=== PATIENT | female | born 1950 | race Caucasian/White ===

== ENCOUNTER 2018-11-28 03:13 | Inpatient (IN) ==
[2018-11-28] MEDS ORDERED: MORPHINE 4 MG/1 ML VIAL IV STA (03:29)
[2018-11-28] MEDS ORDERED: ONDANSETRON 4 MG/2 ML VIAL IV ONE (03:29)
[2018-11-28] MEDS ORDERED: PROMETHAZINE 25 MG/1 ML VIAL IM PRN (04:20)
[2018-11-28] MEDS: ONDANSETRON 4 MG/2 ML VIAL IV PRN ×3 (05:26→20:40)
[2018-11-28] MEDS: MORPHINE 4 MG/1 ML VIAL IV PRN ×4 (06:08→20:39)
[2018-11-28] MEDS: cefTRIAXone 1,000 MG in SYRINGE 1 EACH IV SCH ×2 (06:11→19:36)
[2018-11-28] MEDS: metroNIDAZOLE INJ 500 MG in PREMIX 1 EACH IV SCH ×2 (06:30→17:59)
[2018-11-28] MEDS: SODIUM CHLORIDE 0.9% 1,000 ML IV SCH ×2 (06:30→21:56)
[2018-11-28] MEDS: PANTOPRAZOLE 40 MG VIAL IV SCH ×2 (09:11→20:32)
[2018-11-28] MEDS ORDERED: HYDROCORTISONE 25 MG SUPP RECTAL PRN (16:16)
[2018-11-29] MEDS: SODIUM CHLORIDE 0.9% 1,000 ML IV SCH ×4 (02:27→20:46)
[2018-11-29] MEDS: MORPHINE 4 MG/1 ML VIAL IV PRN ×2 (04:20→16:35)
[2018-11-29] MEDS: ONDANSETRON 4 MG/2 ML VIAL IV PRN ×2 (04:21→16:36)
[2018-11-29 05:07] LABS: Basophils % 0.3 % (0.0-0.8); Eosinophils # 0.2 10*3/uL (0.0-0.87); Eosinophils % 2.5 % (0.00-10.9); Hematocrit 40.5 VOL% (35.7-47.0); Immature Granulocytes % 0.4 %; Immature Granulocytes Absolute 0.03 #; Lymphocytes # 2.1 10*3/uL (1.4-4.0); Lymphocytes % 28.9 % (21.3-54.2); Mean Corpuscular HGB Conc 32.1 GM/DL (32-36); Mean Corpuscular Volume 92.9 FL (87-102); Mean Platelet Volume 10.9 FL (9.6-12.0); Monocytes % 10.1 % (1.7-12.7); Neutrophils % 57.8 % (38.7-73.9); Platelet Count 121 T/CUMM (130-400); Red Blood Count 4.36 MC/CUMM (3.8-5.5); Red Cell Distribution Width 12.7 % (9.3-17.3); White Blood Count 7.1 T/CUMM (4-12)
[2018-11-29 05:27] LABS: Calcium 7.9 MG/DL (8.5-10.1); Osmolality,Calculated 286.8 MOS/KG (273-304)
[2018-11-29] MEDS: cefTRIAXone 1,000 MG in SYRINGE 1 EACH IV SCH ×2 (06:15→18:00)
[2018-11-29] MEDS: metroNIDAZOLE INJ 500 MG in PREMIX 1 EACH IV SCH ×3 (06:18→18:03)
[2018-11-29] MEDS ORDERED: POTASSIUM CHLORIDE 20 MEQ TABLET PO ONE (09:27)
[2018-11-29] MEDS: PANTOPRAZOLE 40 MG VIAL IV SCH ×2 (11:09→20:46)
[2018-11-29] MEDS: ENOXAPARIN 40 MG/0.4 ML SYRINGE SUBCUT SCH (16:46)
[2018-11-29] MEDS: SERTRALINE 100 MG TABLET PO SCH (18:03)
[2018-11-29] MEDS: MAGNESIUM OXIDE 400 MG TABLET PO SCH (20:47)
[2018-11-29] MEDS: POLYETHYLENE GLYCOL POWDER 17 GM PACK PO SCH (20:47)
[2018-11-29] MEDS: DOCUSATE SODIUM 100 MG CAPSULE PO SCH (20:47)
[2018-11-29] MEDS: LORazepam 2 MG/1 ML VIAL IV PRN (22:12)
[2018-11-30] MEDS: MORPHINE 4 MG/1 ML VIAL IV PRN (00:48)
[2018-11-30 05:24] LABS: Basophils % 0.3 % (0.0-0.8); Eosinophils # 0.2 10*3/uL (0.0-0.87); Eosinophils % 2.5 % (0.00-10.9); Hematocrit 39.4 VOL% (35.7-47.0); Hemoglobin 12.6 GM/DL (12.0-16.0); Immature Granulocytes % 0.3 %; Immature Granulocytes Absolute 0.02 #; Lymphocytes # 1.8 10*3/uL (1.4-4.0); Lymphocytes % 29.8 % (21.3-54.2); Mean Corpuscular Volume 92.3 FL (87-102); Monocytes % 10.4 % (1.7-12.7); Neutrophils % 56.7 % (38.7-73.9); Platelet Count 117 T/CUMM (130-400); Red Blood Count 4.27 MC/CUMM (3.8-5.5); Red Cell Distribution Width 12.4 % (9.3-17.3); White Blood Count 6.1 T/CUMM (4-12)
[2018-11-30 05:34] LABS: Calcium 8.1 MG/DL (8.5-10.1); Osmolality,Calculated 283.8 MOS/KG (273-304)
[2018-11-30] MEDS: cefTRIAXone 1,000 MG in SYRINGE 1 EACH IV SCH (06:15)
[2018-11-30] MEDS: metroNIDAZOLE INJ 500 MG in PREMIX 1 EACH IV SCH (06:19)
[2018-11-30] MEDS: buPROPion XL 150 MG TABLET PO SCH (09:53)
[2018-11-30] MEDS: DOCUSATE SODIUM 100 MG CAPSULE PO SCH ×2 (09:54→21:06)
[2018-11-30] MEDS: MAGNESIUM OXIDE 400 MG TABLET PO SCH ×2 (09:54→21:06)
[2018-11-30] MEDS: SERTRALINE 100 MG TABLET PO SCH (09:54)
[2018-11-30] MEDS: POLYETHYLENE GLYCOL POWDER 17 GM PACK PO SCH (09:55)
[2018-11-30] MEDS: PANTOPRAZOLE 40 MG VIAL IV SCH ×2 (09:55→21:06)
[2018-11-30] MEDS: SODIUM CHLORIDE 0.9% 1,000 ML IV SCH ×3 (10:09→23:59)
[2018-11-30] MEDS: ENOXAPARIN 40 MG/0.4 ML SYRINGE SUBCUT SCH (16:58)
[2018-11-30] MEDS: LORazepam 2 MG/1 ML VIAL IV PRN (21:43)
[2018-12-01] MEDS: MORPHINE 4 MG/1 ML VIAL IV PRN (06:35)
[2018-12-01 07:25] LABS: Basophils % 0.3 % (0.0-0.8); Eosinophils # 0.1 10*3/uL (0.0-0.87); Eosinophils % 1.6 % (0.00-10.9); Hematocrit 38.6 VOL% (35.7-47.0); Hemoglobin 12.6 GM/DL (12.0-16.0); Immature Granulocytes % 0.3 %; Immature Granulocytes Absolute 0.02 #; Lymphocytes # 1.5 10*3/uL (1.4-4.0); Lymphocytes % 24.2 % (21.3-54.2); Mean Corpuscular HGB Conc 32.6 GM/DL (32-36); Mean Corpuscular Volume 90.8 FL (87-102); Mean Platelet Volume 11.9 FL (9.6-12.0); Monocytes % 9.6 % (1.7-12.7); Platelet Count 127 T/CUMM (130-400); Red Blood Count 4.25 MC/CUMM (3.8-5.5); Red Cell Distribution Width 12.6 % (9.3-17.3); White Blood Count 6.3 T/CUMM (4-12)
[2018-12-01] MEDS: PANTOPRAZOLE 40 MG VIAL IV SCH (08:03)
[2018-12-01] MEDS: DOCUSATE SODIUM 100 MG CAPSULE PO SCH (08:04)
[2018-12-01] MEDS: MAGNESIUM OXIDE 400 MG TABLET PO SCH (08:04)
[2018-12-01] MEDS: buPROPion XL 150 MG TABLET PO SCH (08:04)
[2018-12-01] MEDS: SERTRALINE 100 MG TABLET PO SCH (08:04)
[2018-12-01] MEDS: SODIUM CHLORIDE 0.9% 1,000 ML IV SCH (08:07)
[2018-12-01 08:19] LABS: Osmolality,Calculated 288.7 MOS/KG (273-304)
[2018-12-01 08:32] VITALS: BP 137/58
[2018-12-01] MEDS ORDERED: POTASSIUM CHLORIDE 20 MEQ TABLET PO ONE (08:45)
[2018-12-02] MEDS ORDERED: POTASSIUM CHLORIDE 20 MEQ TABLET PO SCH (09:00)
== END 2018-12-01 11:35 | disposition home or self-care (01) | DRG 390 ==
LOC: EDUNIT# → EDBD → N.ED 03:13 → N.EDINP 03:13 → SUATTDRO 04:20 → N.3E 05:13
PROVIDERS: ADMIT Family Medicine; ATTEND Hospitalist